=== PATIENT | female | born 1975 | race Caucasian/White ===

== ENCOUNTER 2025-05-12 06:02 | Day surgery (SDC) | payer OTHER ==
[2025-05-10 10:58] VITALS: BMI 25.6
[2025-05-12] MEDS ORDERED: TRIAMCINOLONE ACET 40MG/1ML VIAL ONE (07:22)
[2025-05-12] MEDS: BUPIVACAINE HCL/PF 0.5% (5MG/ML) 10 ML VIAL IJ ONE (10:03)
[2025-05-12 10:22] VITALS: RESP 20
[2025-05-12] MEDS ORDERED: ACETAMINOPHEN 500 MG TABLET (FP) ONE (10:39)
[2025-05-12] MEDS: ACETAMINOPHEN 500 MG TABLET (FP) PO PRN (10:43)
[2025-05-12 11:01] VITALS: BP 118/78; PULSE 76; TEMP 97.8
== END 2025-05-12 11:39 | disposition home or self-care (01) ==
LOC: JASU-SURG 06:02
PROVIDERS: ATTEND Pain Medicine Pain Medicine
PROC: 3E0T33Z Introduction of Anti-inflammatory into Peripheral Nerves and Plexi, Percutaneous Approach (ICD-10-PCS; 2025-05-12)
PROC: 3E0T3BZ Introduction of Anesthetic Agent into Peripheral Nerves and Plexi, Percutaneous Approach (ICD-10-PCS; principal; 2025-05-12 11:00)
DX: M47.812 Spondylosis without myelopathy or radiculopathy, cervical region (principal)
CPT/HCPCS: 76000-TC-FY

== ENCOUNTER 2025-07-27 05:52 | Day surgery (SDC) | payer OTHER ==
[2025-07-27 11:22] VITALS: RESP 18
[2025-07-27] MEDS ORDERED: LIDOCAINE HCL/PF 1% SDV 5ML VIAL ONE (12:05)
[2025-07-27] MEDS ORDERED: DEXAMETHASONE SOD PHOSPHATE 10 MG/1 ML VIAL ONE (12:05)
[2025-07-27] MEDS: LIDOCAINE HCL 1% PRESERVATIVE FREE - 30ML VIAL IJ ONE ×2 (12:50)
[2025-07-27] MEDS: LIDOCAINE HCL/PF 2% SDV 5ML VIAL INF ONE ×2 (12:51)
[2025-07-27] MEDS: BUPIVACAINE HCL/PF 0.5% (5 MG/ML) 30 ML VIAL IJ ONE ×2 (12:54)
[2025-07-27] MEDS: DEXAMETHASONE SOD PHOSPHATE 10 MG/1 ML VIAL IVPUSH ONE ×2 (13:00)
[2025-07-27] MEDS ORDERED: ACETAMINOPHEN 500 MG TABLET (FP) ONE (14:03)
[2025-07-27] MEDS: ACETAMINOPHEN 500 MG TABLET (FP) PO PRN (14:06)
[2025-07-27 14:24] VITALS: TEMP 97.9
[2025-07-27 14:26] VITALS: BP 116/77; PULSE 72
== END 2025-07-27 14:40 | disposition home or self-care (01) ==
LOC: JASU-SURG 05:52
PROVIDERS: ATTEND Pain Medicine Pain Medicine
DX: M47.812 Spondylosis without myelopathy or radiculopathy, cervical region (principal)
CPT/HCPCS: 76000-TC-FY; J1100